=== PATIENT | female | born 1995 | race Hispanic/Latino ===

== ENCOUNTER 2018-08-05 12:06 | Emergency (ER) | payer SELFPAY ==
[~2018-08-05] VITALS: Ht 157.5 cm; Wt 59.0 kg
[~2018-08-05 12:06] MED LIST: ROBITUSSIN15 MG/5 ML; Z.0.MOTRIN600 MG PO; [UNRECOGNIZED DRUG - OTHER] PO
--- OUTSIDE RECORDS SUMMARY | 2018-08-05 12:08 | XMS REPORT ---
Author Author [facility] Address Unknown Phone Unavailable Care Team Providers Care Orientor Name Role Phone Unavailable Unavailable Payers Payer Name Policy Type Policy Number Effective Date Expiration Date Problems This patient has no known problems. Allergies, Adverse Reactions, Alerts Allergy Name Allergy Type Status Severity Reaction(s) Onset Date Inactive Date Treating Clinician Comments No Known Allergies DA Active U 2017-07-21 00:00:00 Medications This patient has no known medications.
--- NOTE | 2018-08-05 13:46 | Diagnostic Imaging Report ---
Exam: Right foot radiographs-3 views Clinical History: Status post fall. Comparison: None. Findings: No evidence of acute fracture, malalignment, or soft tissue abnormality. The Lisfranc alignment is maintained. Impression: No acute radiographic abnormality. Signed by: Dr. Shade Núñez MD on 08/05/2018 1:43 PM
== END 2018-08-05 15:54 | disposition home or self-care (01) ==
LOC: FSED 12:06
DX: S90.31XA Contusion of right foot, initial encounter (principal); W18.30XA Fall on same level, unspecified, initial encounter; Y92.008 Other place in unspecified non-institutional (private) residence as the place of occurrence of the external cause
CPT/HCPCS: 99282; 99284